=== PATIENT | male | born 1945 | race Caucasian/White ===

== ENCOUNTER 2017-05-02 08:36 | Day surgery (SDC) | payer MEDICARE, BC ==
[~2017-05-02] VITALS: Ht 188 cm; Wt 106.2 kg
[~2017-05-02 08:36] MED LIST: 1-ME1LIQ PO; ASPI81CH3 PO; CARV6.252 PO; CIAL5TAB PO; FISH120014 PO; LATA0.00 OP; NAPR220T95 PO; ONDA1TAB16 PO; PERC5TAB12 PO; RAMI10CA35 PO; SYSTSOL EACH EYE; TAMS0.4C4 PO; TIMO0.2525 EACH EYE; TRAZ50TA4 PO
[2017-05-02] MEDS ORDERED: IOHEXOL 350 MG/ML 50 ML BTL (for Cath Lab) OTHER ONE (08:37)
[2017-05-02] MEDS ORDERED: IOHEXOL 350 MG/ML 100 ML BTL (for Cath Lab) OTHER ONE (08:37)
[2017-05-02] MEDS ORDERED: RAMI10CA PO (09:35)
[2017-05-02] MEDS ORDERED: ATOR40TA16 PO (09:35)
[2017-05-02] MEDS ORDERED: NAPR500T2 PO (09:35)
[2017-05-02] MEDS ORDERED: AMLO5TAB2 PO (09:35)
[2017-05-02] MEDS ORDERED: LATA0.002 LEFT EYE (09:35)
[2017-05-02] MEDS ORDERED: TAMS0.4C4 PO (09:35)
[2017-05-02] MEDS ORDERED: TRAZ50TA12 PO (09:35)
[2017-05-02] MEDS ORDERED: ASPI81CH6 CHEW (09:35)
[2017-05-02] MEDS ORDERED: SYSTSOL15 LEFT EYE (09:35)
[2017-05-02] MEDS ORDERED: CIAL5TAB PO (09:35)
[2017-05-02] MEDS ORDERED: CARV6.252 PO (09:35)
[2017-05-02] MEDS ORDERED: NITR0.2D T-DERMAL (09:39)
[2017-05-02 09:40] VITALS: BP 133/77; PULSE 54; RESP 16; TEMP 98; O2SAT 95
[2017-05-02] MEDS ORDERED: METF1000 PO (09:44)
[2017-05-02 09:45] LABS: AUTOMATED NEUTROPHIL # 3.1 TH/MM3 (1.8-7.7); BASOPHIL % 0.5 % (0.0-2.0); EOSINOPHIL # 0.1 TH/MM3 (0-0.4); EOSINOPHIL % 1.8 % (0.0-4.0); HEMATOCRIT 38.3 % (39.0-51.0); LYMPH % 21.2 % (9.0-44.0); MEAN CELL VOLUME 92.6 FL (80.0-100.0); MEAN CORPUSCULAR HEMOGLOBIN 31.5 PG (27.0-34.0); MONO % 8.2 % (0.0-8.0); NEUT % 68.3 % (16.0-70.0); PLATELET COUNT 90 TH/MM3 (150-450); RED BLOOD COUNT 4.13 MIL/MM3 (4.50-5.90); RED CELL DISTRIBUTION WIDTH 14.2 % (11.6-17.2); WHITE BLOOD COUNT 4.6 TH/MM3 (4.0-11.0)
[2017-05-02] MEDS ORDERED: ASPIRIN 325 MG TAB PO SCH (09:45)
[2017-05-02 09:47] LABS: HEMO FLAGS AUTO DIFF
[2017-05-02 09:52] LABS: APTT (PATIENT) 24.2 SEC (24.3-30.1); PROTHROMBIN TIME - PATIENT 10.6 SEC (9.8-11.6)
[2017-05-02] MEDS ORDERED: NS 1000P @30 MLS/HR (KVO) IV SCH (10:00)
[2017-05-02 10:01] LABS: BICARBONATE 25.1 MEQ/L (21.0-32.0); POTASSIUM 4.4 MEQ/L (3.5-5.1)
[2017-05-02 10:11] LABS: PLATELET ESTIMATE SMEAR LOW (NORMAL); PLATELET MORPHOLOGY NORMAL (NORMAL); SCAN/DIFF AUTO DIFF CONFIRMED
[2017-05-02] MEDS ORDERED: HEPARIN SODIUM - IV 10,000 UNITS/10 ML VIAL ONE (10:45)
[2017-05-02] MEDS ORDERED: NITROGLYCERIN INJ 5 ML ONE (10:45)
[2017-05-02] MEDS ORDERED: HEPARIN-NS/PF INJ 1,000 ML ONE (10:45)
[2017-05-02] MEDS ORDERED: MIDAZOLAM HCL 2 MG/2 ML VIAL ONE (10:45)
[2017-05-02] MEDS ORDERED: SODIUM CHLOR 0.9% 1000 ML INJ 1,000 ML IV SCH (11:31)
[2017-05-02] MEDS ORDERED: BACITRACIN OINT 0.9 GM PKT TOP ONE (11:45)
[2017-05-02] MEDS ORDERED: MISC INFORMATION XX ONE (11:45)
--- NOTE | 2017-05-02 12:01 | MA ---
cc: KIARA WEBB M.D., JEFFREY DATE: 05/02/2017 [address] [place] for even PROCEDURE PERFORMED 1. Left heart catheterization. 2. Left ventriculography. 3. Coronary angiography. DESCRIPTION OF PROCEDURE The patient was brought to the cardiac medical lab director in a fasting state. The right groin was prepped and draped in sterile fashion. Using 1% lidocaine for local anesthesia a Terumo sheath was inserted in the right radial artery without difficulty. A Franklin catheter was then used to image both coronary arteries. An angled pigtail catheter was used for left ventriculogram and then a pullback. The sheath was pulled and hemostasis obtained with a Terumo band. He received a cocktail at the start of the case with nitroglycerin and heparin, but no verapamil due to bradycardia. There were no complications. Estimated blood loss was 3 cc. FINDINGS HEMODYNAMICS The left ventricular pressure is 95/7 with an end-diastolic pressure of 7. The aortic pressure is 91/50 with a mean of 70. There is no gradient during pullback from the left ventricle to the aorta. LEFT VENTRICULOGRAPHY Left ventriculography shows global hypokinesis. Estimated ejection fraction is 30%. CORONARY ANGIOGRAPHY The coronary circulation is right-dominant. The left main coronary artery appears normal. It branches into two ramus intermediate vessels, an LAD and a circumflex vessel. The circumflex vessel appears normal. The ramus intermediate branches have irregularities only. The left anterior descending artery has a long zone of plaquing in the proximal segment of about 30% severity. Note, by CTA this was read as 50-70%, but by coronary angiography only appears to be about 30%. The circumflex artery appears normal. The right coronary artery has about 15% proximal disease and is a dominant vessel. CONCLUSIONS 1. Normal hemodynamics. 2. Mild nonobstructive coronary artery disease. 3. Impaired LV function, estimated ejection fraction of 30%. MD BERRY Sweeney/BT /11:27 AM /11:51 AM
--- NOTE | 2017-05-02 17:53 | EKG ---
Date Performed: 05/02/2017 Time Performed: 09:42:54 PTAGE: 71 years EKG: Sinus bradycardia with borderline 1st degree A-V block. 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
== END 2017-05-02 16:25 | disposition home or self-care (01) ==
LOC: HDOC 08:36 → HDIC 08:37 → HDOC 16:25
PROVIDERS: ATTEND Internal Medicine Cardiovascular Disease
DX: I25.10 Atherosclerotic heart disease of native coronary artery without angina pectoris (principal); I48.0 Paroxysmal atrial fibrillation; I44.0 Atrioventricular block, first degree; R00.1 Bradycardia, unspecified; I11.9 Hypertensive heart disease without heart failure; G47.30 Sleep apnea, unspecified; E11.9 Type 2 diabetes mellitus without complications; K90.9 Intestinal malabsorption, unspecified; Z82.49 Family history of ischemic heart disease and other diseases of the circulatory system; Z01.818 Encounter for other preprocedural examination
CPT/HCPCS: 80048; 85025; 85610; 85730; 93005; 93458; 99152; 99153; C1769; C1893; J1644; J2250; J3010; Q9967